=== PATIENT | male | born 1945 | race Caucasian/White ===

== ENCOUNTER 2016-09-08 18:07 | Emergency (ER) | payer OTHER, MEDICARE ==
[~2016-09-08] VITALS: Ht 167.6 cm; Wt 96.2 kg
[~2016-09-08 18:07] MED LIST: AMLODIPINE BESYL5 M1 PO; ASPIRIN81 M4 PO; ATORVASTATIN CA40 M1 PO; AZITHROMYCIN250 M1 PO; CENTRUM SILVER1 EAC3 PO; ELIQUIS5 M1 PO; EPLERENONE25 M1 PO; LOPRESSOR50 M1 PO; METFORMIN HCL500 M3 PO; OMEPRAZOLE20 M2 PO; VITAMIN D31000 UNI2 PO
--- NOTE | 2016-09-08 18:47 | ED CARDIAC/CP/PALPITATIONS ---
History of Present Illness General Chief Complaint: Chest Pain Stated Complaint: R SIDED CHEST PAIN Source: patient, family, old records Exam Limitations: no limitations Allergies Coded Allergies: No Known Allergies (06/15/16) Reconcile Medications Amlodipine Besylate 5 MG TABLET 1 TAB PO DAILY HEART (Reported) Apixaban (Eliquis) 5 MG TABLET 1 TAB PO BID BLOOD THINNER (Reported) Atorvastatin Calcium 40 MG TABLET 1 TAB PO DAILY CHOLESTEROL (Reported) Cholecalciferol (Vitamin D3) 1,000 UNIT TABLET 1 TAB PO DAILY SUPPELMENT ( Reported) Eplerenone 25 MG TABLET 1 TAB PO DAILY HEART/BP (Reported) Metformin HCl 500 MG TABLET 1 TAB PO DAILY DIABETES (Reported) Metoprolol Tartrate (Lopressor) 50 MG TABLET 1 TAB PO BID HEART (Reported) Omeprazole 20 MG CAPSULE. 1 CAP PO BID GI (Reported) Triage Note: TO ED TODAY FOR DULL CHEST PAIN SINCE YESTERDAY. DENIES SOB. PT STATES HE HAD SIMILARY SYMPTOMS IN MAY 2016 AND AT THAT TIME IT PROGRESSED TO SOB AND HE WAS DIAGNOSED WITH PULM EMBOLISM. SINCE THEN HAS BEEN ON ELOQUIS. PT CAME TO ED BECAUSE HE WAS CONCERNED THIS DULL PAIN COULD BE A PE AGAIN. AWAKE, ALERT AND ORIENTED, SKIN WARM AND DRY. IN NO ACUTE DITRESS. EKG DONE IN TRIAGE AND PT BROUGHT TO ROOM 20 Triage Nurses Notes Reviewed? yes HPI: Patient is a 71-year-old male presents complaining of dull midsternal chest pain that intermittently radiates to the right side of his chest. Symptoms onset yesterday. 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 Pain is currently mild, worsens with twisting his chest. Patient denies change in pain with walking or exertion. Patient takes Eliquis twice a day for history of pulmonary embolism. Patient denies dyspnea, diaphoresis, vomiting. (JOCE COFFEY) Vital Signs & Intake/Output Vital Signs & Intake/Output Vital Signs Date Time Temp Pulse Resp B/P Pulse O2 O2 Flow FiO2 Ox Delivery Rate 09/08 2208 66 18 138/65 99 Room Air 09/08 1948 Room Air 09/08 1947 98.3 73 18 121/63 93 Room Air 09/08 1824 98.6 81 18 153/70 94 Room Air Past History Travel History Traveled to [place] past 21 day No Medical History Any Pertinent Medical History? 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 No (JOCE COFFEY) Review of Systems Review of Systems Constitutional: Denies: chills, fever. EENTM: Reports: no symptoms. Respiratory: Denies: cough, short of breath. Cardiovascular: Reports: see HPI. GI: Reports: no symptoms. Genitourinary: Reports: no symptoms. Musculoskeletal: Reports: no symptoms. Skin: Reports: no symptoms. Neurological/Psychological: Reports: no symptoms. Hematologic/Endocrine: Reports: no symptoms. Immunologic/Allergic: Reports: no symptoms. (JOCE COFFEY) Physical Exam Physical Exam General Appearance: well developed/nourished, alert, awake Head: atraumatic, normal appearance Eyes: Bilateral: normal appearance, PERRL, EOMI. Ears, Nose, Throat: normal pharynx, normal ENT inspection, hearing grossly normal Neck: normal inspection, supple, full range of motion Respiratory: normal breath sounds, no respiratory distress, lungs clear, mild right sided sternal tenderness, twisting reproduces patient's pain Cardiovascular: regular rate/rhythm, no appreciable murmur Peripheral Pulses: 2+ radial (L) Gastrointestinal: soft, non-tender Back: normal inspection, normal range of motion Extremities: normal inspection, normal capillary refill, normal range of motion, no edema Neurologic/Psych: no motor/sensory deficits, awake, alert, oriented x 3, normal gait, normal mood/affect Skin: intact, normal color, warm/dry Lymphatic: no anterior cervical ketan Core Measures ACS in differential dx? Yes ASA ordered for poss ACS? Yes-ordered Severe Sepsis Present: No Septic Shock Present: No (JOCE COFFEY) Progress Differential Diagnosis: AMI, aortic dissection, costochondritis, musculoskeletal pain, pneumonia, pneumothorax, pulmonary embolism, unstable angina, V-fib/V-Tach Diagnostic Imaging: Viewed by Me: Radiology Read. Discussed w/RAD: Radiology Read. CXR Impression: PATIENT: STEPHANIE DUGGAN PRESENT AGE: 71 PATIENT ACCOUNT NO: [id number] : 44 LOCATION: ER ORDERING PHYSICIAN: JOCE STALLINGS SERVICE DATE: 09/08/16 EXAM TYPE: RAD - XRY-PORTABLE CHEST XRAY EXAMINATION: XR PORTABLE CHEST CLINICAL INFORMATION: Chest pain. COMPARISON: Chest done on 06/15/2016. TECHNIQUE: Portable AP view of the chest was obtained. FINDINGS: Both lung boyer are mildly hyperinflated, symmetrically expanded and are clear. The cardiac mediastinal silhouette shows nonspecific mild superior mediastinal widening however appear improved since 08/2015. There is no pleural effusion present. The visualized upper abdomen is unremarkable. IMPRESSION: No acute cardiopulmonary disease. Mild superior mediastinal widening is noted however, appear improved since 06/15/2016. DICTATED BY: VERONICA PALACIO MD DATE/TIME DICTATED:09/08/162038 SWITCHBOX ASSEMBLER:INOCENTE DATE/TIME TRANSCRIBED:09/08/162038 CONFIDENTIAL, DO NOT COPY WITHOUT APPROPRIATE AUTHORIZATION. <Electronically signed in Other Vendor System> SIGNED BY: VERONICA PALACIO MD 09/08/162043 Initial ED EKG: normal sinus rhythm, 83 bpm, normal axis, PVCs present, nonspecific st/t wave abnormalities Prior EKG: changed (nonspecific st/t wave changes) Repeat EKG: changed (improved st/t waves) Rhythm Strip: normal sinus rhythm (JOCE COFFEY) Plan of Care: Orders Procedure Date/time Status TROPONIN LEVEL 09/08 2129 Complete EKG 09/08 2129 Active Telemetry/Mop Worker 09/08 1903 Active TROPONIN LEVEL 09/08 1903 Complete PARTIAL THROMBOPLASTIN TIME 09/08 1903 Complete PROTHROMBIN TIME 09/08 190 Complete MAGNESIUM 09/08 190 Complete D-DIMER 09/08 1903 Complete COMPREHENSIVE METABOLIC PANEL 09/08 1903 Complete CBC WITHOUT DIFFERENTIAL 09/08 1903 Complete EKG 09/08 180 Active Laboratory Tests 09/08/168: Troponin I < 0.01 09/08/16 1900: Anion Gap 12, Estimated GFR 50 L, BUN/Creatinine Ratio 18.6, Glucose 139 H, Calcium 9.2, Magnesium 1.8, Total Bilirubin 0.5, AST 24, ALT 26, Alkaline Phosphatase 134 H, Troponin I < 0.01, Total Protein 7.1, Albumin 4.0, Globulin 3.1, Albumin/Globulin Ratio 1.3, PT 12.6 H, INR 1.20 H, APTT 30, D-Dimer < 200 , CBC w Diff NO MAN DIFF REQ, RBC 4.62 L, MCV 83.7, MCH 27.8, RDW 15.8 H, MPV 9.1, Gran % 66.0, Lymphocytes % 20.9, Monocytes % 7.3, Eosinophils % 5.2 H, Basophils % 0.6, Absolute Granulocytes 6.3, Absolute Lymphocytes 2.0, Absolute Monocytes 0.7 H, Absolute Eosinophils 0.5, Absolute Basophils 0.1, PUBS MCHC 33.2 09/08/2016 7:14:17 PM: Discussed with Dr. Mariee Patient evaluated by Dr. Mariee: pain is reproducible, possible musculoskeletal, obtain repeat ekg and troponin, if negative can discharge home. Discussed with Dr. Mora: if repeat ekg and troponin negative then can have patient follow up with his health consultant. 2229: Results discussed with patient. Patient resting comfortably. Troponins negative x 2. D-dimer negative. chest x-ray improved from previous. Appears stable for discharge. (JOCE COFFEY) Departure Departure Time of Disposition: 2225 Disposition: HOME OR SELF CARE Condition: Stable Clinical Impression Primary Impression: Chest pain Qualifiers: Chest pain type: unspecified Qualified Code: R07.9 - Chest pain, unspecified Referrals: ABE BARBA,SCARLETT Mcneal (PCP/Family) ULISES MARTINEZ MD Additional Instructions: Follow-up with Dr. Martinez within one week for further evaluation. Call Saturday for appointment. Return to emergency department if chest pain worsening, difficulty breathing, or worsening of symptoms. Departure Forms: Customer Survey General Discharge Information (JOCE COFFEY) PA/SUPPLY CHAIN ANALYST Co-Sign Statement Statement: ED Attending supervision documentation- [X] I saw and evaluated the patient. I have also reviewed all the pertinent lab results and diagnostic results. I agree with the findings and the plan of care as documented in the PA's/SUPPLY CHAIN ANALYST's documentation. [] I have reviewed the ED Record and agree with the PA's/SUPPLY CHAIN ANALYST's documentation. [] Additions or exceptions (if any) to the PAs/SUPPLY CHAIN ANALYST's note and plan are summarized below: [] (MARY BARBA,KRISTIN Torres) Critical Care Note Critical Care Note Critical Care Time: non-applicable (LEANNE STALLINGS,JOCE)
[2016-09-08 19:20] LABS: ABSOLUTE BASOPHIL COUNT 0.1 /CUMM (0.0-0.2); ABSOLUTE EOSINOPHIL COUNT 0.5 /CUMM (0.0-0.7); ABSOLUTE GRANULOCYTE CT 6.3 /CUMM (1.4-6.5); ABSOLUTE MONOCYTE COUNT 0.7 /CUMM (0.10-0.60); BASOPHIL % 0.6 % (0.0-2.0); EOSINOPHIL % 5.2 % (0-5); HEMATOCRIT 38.6 % (42-52); MEAN CORPUSCULAR HGB 27.8 PG (27.0-31.0); MEAN CORPUSCULAR HGB CONC 33.2 G/DL (33.0-37.0); MEAN CORPUSCULAR VOLUME 83.7 FL (80.0-94.0); MEAN PLATELET VOLUME 9.1 FL (7.4-10.4); PLATELET COUNT 243 /CUMM (130-400); RBC DISTRIBUTION WIDTH 15.8 % (11.5-14.5); RED BLOOD CELL CT 4.62 /CUMM (4.70-6.10); WHITE BLOOD CELL COUNT 9.6 /CUMM (4.8-10.8)
[2016-09-08] MEDS ORDERED: ELIQUIS5 M1 PO (19:22)
[2016-09-08 19:53] LABS: PT 12.6 SEC (9.4-12.5); PTT 30 SEC (25-37)
--- NOTE | 2016-09-08 20:44 | RADIOLOGY REPORT ---
EXAMINATION: XR PORTABLE CHEST CLINICAL INFORMATION: Chest pain. COMPARISON: Chest done on 06/15/2016. TECHNIQUE: Portable AP view of the chest was obtained. FINDINGS: Both lung boyer are mildly hyperinflated, symmetrically expanded and are clear. The cardiac mediastinal silhouette shows nonspecific mild superior mediastinal widening however appear improved since 06/15/2016. There is no pleural effusion present. The visualized upper abdomen is unremarkable. IMPRESSION: No acute cardiopulmonary disease. Mild superior mediastinal widening is noted however, appear improved since 06/15/2016.
[2016-09-08 22:09] VITALS: BP 138/65
== END 2016-09-08 23:42 ==
LOC: ERH 18:07
PROVIDERS: Physician Assistant
DX: R07.89 Other chest pain (principal)
CPT/HCPCS: 93005; 93010; J3490